=== PATIENT | female | born 1960 | race Caucasian/White ===

== ENCOUNTER 2017-01-16 15:55 | Inpatient (IN) | payer OTHER ==
[~2017-01-16] VITALS: Ht 160 cm; Wt 92.2 kg
[~2017-01-16 15:55] MED LIST: AMLO2.5T PO; GEMF600T3 PO
[2017-01-16] MEDS ORDERED: DEXAMETHASONE SOD PHOSPHATE 4 MG INJ IV ONE (16:15)
[2017-01-16] MEDS ORDERED: diphenhydrAMINE 50 MG/1 ML VIAL IV ONE (16:15)
[2017-01-16] MEDS ORDERED: IV NS 1000 ML 1,000 ML IV ONE (16:15)
[2017-01-16] MEDS ORDERED: NITR0.4T48 SL (16:20)
[2017-01-16] MEDS ORDERED: ATOR80TA PO (16:20)
[2017-01-16] MEDS ORDERED: LISI-607 PO (16:20)
[2017-01-16] MEDS ORDERED: CLOP75TA15 PO (16:20)
[2017-01-16] MEDS ORDERED: ASPI81TA31 PO (16:20)
[2017-01-16] MEDS ORDERED: FENO134C PO (16:20)
[2017-01-16] MEDS ORDERED: METO-302 PO (16:20)
--- NOTE | 2017-01-16 16:27 | NUR ---
IV PLACED, LABS DRAWN/SENT/MEDS ADMINISTERED,PT ON 4L O2 VIA [facility].MONITOR SHOWS NSR
[2017-01-16] MEDS ORDERED: DEXAMETHASONE SOD PHOSPHATE 10 MG INJ ONE (16:28)
[2017-01-16] MEDS ORDERED: diphenhydrAMINE 50 MG/1 ML VIAL ONE (16:28)
[2017-01-16] MEDS ORDERED: hydrALAZINE HCL 20 MG/1 ML VIAL IV ONE (16:30)
[2017-01-16] MEDS ORDERED: LABETALOL HCL 100 MG/20 ML VIAL IV ONE (16:36)
[2017-01-16] MEDS ORDERED: hydrALAZINE HCL 20 MG/1 ML VIAL ONE (16:37)
[2017-01-16 16:54] LABS: EOSINOPHILS # (AUTO) 0.1 K/uL (0.0-0.7); EOSINOPHILS % (AUTO) 0.5 % (0.0-7.0); HEMATOCRIT 50.3 % (37-47); HEMOGLOBIN 17.2 G/DL (12.0-16.0); LYMPHOCYTES # (AUTO) 2.3 K/UL (0.8-4.8); LYMPHOCYTES % (AUTO) 15.7 % (20.5-51.5); MEAN CORPUSCULAR HGB CONC 34 g/dL (32.0-37.0); MEAN CORPUSCULAR VOLUME 90.9 FL (81.0-99.0); MONOCYTES # (AUTO) 0.5 K/UL (0.1-1.30); MONOCYTES % (AUTO) 3.3 % (0.0-11.0); NEUTROPHILS # (AUTO) 11.8 K/UL (1.8-8.9); NEUTROPHILS % (AUTO) 80.5 % (38.5-71.5); PLATELET COUNT (AUTO) 223 K/UL (150-450); RED BLOOD CELL COUNT(AUTO) 5.53 MIL/UL (4.2-5.4); WHITE BLOOD COUNT (AUTO) 14.7 K/UL (4.0-11.2)
[2017-01-16 16:57] LABS: CREATININE 0.7 mg/dL (0.6-1.3); POTASSIUM 4.1 mmol/L (3.5-5.1)
--- NOTE | 2017-01-16 17:03 | NUR ---
PHARMACY NOTE;LABETOLOL IV NOT ADMIN,BP LOW ENOUGH, DR LÓPEZ GAVE VERBAL ORDER TO CANCEL ADMIN.
[2017-01-16 17:04] LABS: BILIRUBIN,TOTAL 0.4 mg/dL (0.2-1.0)
--- NOTE | 2017-01-16 17:13 | NUR ---
ALL MEDS ADMINISTERED 500ML 0.9NS LEFT IN 1L BAG. SBAR REPORT TO VADIM FLORES. MRSA NARES ORDERED/SENT.
--- NOTE | 2017-01-16 17:19 | NUR ---
PT TRANSFERED TO CCU#1 VIA [facility]/MONITOR/O2, BELONGINGS LIST/ADMIT ORDER/SKIN ASSESSMENT COMPLETED.
[2017-01-16 17:46] VITALS: BP 120/76
--- NOTE | 2017-01-16 18:00 | NUR ---
ADMIT A 56YO FEMALE FROM ER VIA [facility] WITH C/O SEVERE ANGIO EDEMA FROM ALLERGIC REACTION. LIPS IS SEVERLEY SWOLLEN AND BOTH CHEEKS. PT CANT TALK VERY WELL. APPLIED ICE PACK ON BOTH CHEEKS TO RELIEVE THE SWELLING. VSS.
[2017-01-16] MEDS ORDERED: MORPHINE SULFATE 2 MG/1 ML DISP.SYRIN IV PRN (18:15)
[2017-01-16] MEDS ORDERED: ACETAMINOPHEN 650 MG SUPP.RECT RC PRN (18:15)
[2017-01-16] MEDS ORDERED: ALBUTEROL SULFATE 2.5 MG/3 ML NEBU NEB PRN (18:15)
[2017-01-16] MEDS ORDERED: CLONIDINE-TTS 1 PATCH TD SCH (18:15)
[2017-01-16] MEDS ORDERED: diphenhydrAMINE 50 MG/1 ML VIAL IV PRN (18:15)
--- NOTE | 2017-01-16 18:30 | NUR ---
PT C/O CHEST PAIN LEVEL 4 AROUND LEFT SIDE OF HER LOWER BREAST. NO C/O SOB NOTED. NOTIFIED DR JONES WITH ADMISSION AND C/O CHEST PAIN. PT REFUSED TO TAKE MORPHINE IV ORDERED. APPLIED ICE PACK ON HER CHEEKS TO RELIVE SWELLING. AFEBRILE.
[2017-01-16 19:00] VITALS: BP 160/83
[2017-01-16 20:00] VITALS: BP 176/86
[2017-01-16] MEDS: methylPREDNISolone SOD SUCC 40 MG/ML VIAL IV SCH (20:36)
[2017-01-16] MEDS: hydrALAZINE HCL 20 MG/1 ML VIAL IV PRN (20:36)
[2017-01-16] MEDS: FAMOTIDINE. 20 MG/2 ML VIAL IV SCH ×2 (20:37→20:47)
--- NOTE | 2017-01-16 20:47 | NUR ---
High BP, PRN medication given. Patient refused 2100 Pepcid. Teaching provided of risks/benefits. Continued to refused
[2017-01-16 21:00] VITALS: BP 110/59
[2017-01-16] MEDS: MORPHINE SULFATE 4 MG/1 ML DISP.SYRIN IV PRN (21:14)
[2017-01-16] MEDS: ONDANSETRON 4 MG/2 ML VIAL IV PRN (21:16)
--- NOTE | 2017-01-16 21:25 | NUR ---
Patient complaining of chest pain 6/10 radiating to left shoulder. Placed patient on 2L O2. EKG done stat, NSR. Notified Dr. Paul.
[2017-01-16 22:00] VITALS: BP 129/74
[2017-01-16 23:00] VITALS: BP 107/62
[2017-01-16] MEDS ORDERED: NITROGLYCERIN 0.3 MG/TAB BOTTLE SL PRN (23:15)
[2017-01-16] MEDS: ENOXAPARIN SODIUM 100 MG/ML DISP.SYRIN SQ SCH (23:51)
[2017-01-16] MEDS ORDERED: ENOXAPARIN SODIUM 60 MG/0.6 ML DISP.SYRIN SQ ONE (23:58)
[2017-01-16] MEDS ORDERED: ENOXAPARIN SODIUM 30 MG/0.3 ML DISP.SYRIN ONE (23:58)
[2017-01-17] VITALS (24 sets, daily range): BP systolic 101–159; BP diastolic 36–84
--- NOTE | 2017-01-17 | NUR ---
Chest pain managed with PRN medication as ordered. Patient denies chest pain at this time.
--- NOTE | 2017-01-17 00:08 | NUR ---
90 mg Lovenox unavailable in pyxis. Administered 60 mg + 30 mg Lovenox SQ for total of 90 mg Lovenox as ordered. Verified and witnessed with Kelli Gomez RN
[2017-01-17] MEDS: IV D5 1/2 NS 1000 ML 1,000 ML IV PRN ×2 (01:38→14:35)
[2017-01-17 05:44] LABS: BASOPHILS % (AUTO) 0.2 % (0.0-2.0); HEMATOCRIT 44.7 % (37-47); HEMOGLOBIN 15.6 G/DL (12.0-16.0); LYMPHOCYTES # (AUTO) 1.4 K/UL (0.8-4.8); LYMPHOCYTES % (AUTO) 11.9 % (20.5-51.5); MEAN CORPUSCULAR HEMOGLOBIN 31.5 UUG (27.0-31.0); MEAN CORPUSCULAR HGB CONC 35 g/dL (32.0-37.0); MEAN CORPUSCULAR VOLUME 90.2 FL (81.0-99.0); MONOCYTES # (AUTO) 0.1 K/UL (0.1-1.30); MONOCYTES % (AUTO) 0.5 % (0.0-11.0); NEUTROPHILS # (AUTO) 10.1 K/UL (1.8-8.9); NEUTROPHILS % (AUTO) 87.4 % (38.5-71.5); PLATELET COUNT (AUTO) 212 K/UL (150-450); RED BLOOD CELL COUNT(AUTO) 4.95 MIL/UL (4.2-5.4); WHITE BLOOD COUNT (AUTO) 11.6 K/UL (4.0-11.2)
[2017-01-17 05:49] LABS: BILIRUBIN,TOTAL 0.5 mg/dL (0.2-1.0); CREATININE 0.8 mg/dL (0.6-1.3); MAGNESIUM 1.7 mg/dL (1.8-2.4); POTASSIUM 4.1 mmol/L (3.5-5.1); TOTAL PROTEIN, SERUM 6.9 g/dL (6.4-8.2)
[2017-01-17 05:53] LABS: THYROID STIMULATING HORMONE 0.381 mIU/mL (0.358-3.740)
--- NOTE | 2017-01-17 06:25 | NUR ---
Critical lab for elevated troponin. Notified Dr. Moreira. Pending cardiology consult
--- NOTE | 2017-01-17 07:35 | NUR ---
No more complaints of chest pain. Patient states she is comfortable since admin of PRN morphine. BP elevated in beginning of shift, managed with PRN medication. PRN 2L O2 to keep SpO2 WNL, as ordered, now on room air. NPO status maintained. SBAR report given to Melia Hurtado RN.
--- NOTE | 2017-01-17 08:00 | NUR ---
Pt received this am awake and alert with fall precautions and safety measures maintained. classroom monitor and alarms working properly wnl. IVF infusing as ordered. Pt stable and nad noted.
[2017-01-17] MEDS: AMLODIPINE 5 MG TABLET PO SCH ×2 (08:02→08:21)
[2017-01-17] MEDS: ASPIRIN 81 MG TAB.CHEW PO SCH ×3 (08:02→11:50)
[2017-01-17] MEDS: CLOPIDOGREL 75 MG TABLET PO SCH ×3 (08:02→11:50)
[2017-01-17] MEDS: methylPREDNISolone SOD SUCC 40 MG/ML VIAL IV SCH ×2 (08:03→21:30)
[2017-01-17] MEDS: FAMOTIDINE. 20 MG/2 ML VIAL IV SCH ×2 (08:03→21:00)
[2017-01-17] MEDS: METOPROLOL SUCCINATE XL 25 MG TAB.SR.24H PO SCH ×2 (08:04→08:21)
[2017-01-17] MEDS: ENOXAPARIN SODIUM 100 MG/ML DISP.SYRIN SQ SCH ×2 (08:38→21:37)
[2017-01-17] MEDS ORDERED: AMLODIPINE 2.5 MG TABLET PO SCH (09:00)
--- NOTE | 2017-01-17 11:40 | NUR ---
Dr. To here to see pt. Full report given. New orders received and carried out.
[2017-01-17] MEDS ORDERED: LORAZEPAM 2 MG/1 ML VIAL IV ONE (11:45)
--- NOTE | 2017-01-17 11:51 | NUR ---
US tech here to see pt for 2D Echocardiogram.
[2017-01-17] MEDS: hydrALAZINE HCL 20 MG/1 ML VIAL IV PRN (14:46)
[2017-01-17] MEDS: MORPHINE SULFATE 4 MG/1 ML DISP.SYRIN IV PRN (15:24)
[2017-01-17] MEDS: ONDANSETRON 4 MG/2 ML VIAL IV PRN (15:24)
[2017-01-17] MEDS: MAGNESIUM SULFATE/D5W 100 ML IV SCH ×2 (15:51→16:40)
--- NOTE | 2017-01-17 18:51 | NUR ---
End of shift: Pt sitting up at the edge of the bed awake and alert with fall precautions and safety measures maintained. spring winder and alarms working properly wnl. IVF infusing as ordered. Pt stable and nad noted.
--- NOTE | 2017-01-17 19:30 | NUR ---
patient received on room air ,no respiratory distress noted breathing even and unlabored on room air .saturation 94% and rr 22. Addendum: 01/17/17 at 2209 by DARWIN DICKENS RN Amended: Links added. Addendum: 01/17/17 at 2210 by DARWIN DICKENS RN Amended: Links added.
--- NOTE | 2017-01-17 20:30 | NUR ---
patient in bed awake , no pain verbalized and no sob noted breathing even and unlabored on room air . facial edema and lip edema still noted but as per patient the swelling/edema is much better and less .advised patient to call for any breathing problem and pain .
[2017-01-17] MEDS: ATORVASTATIN 40 MG TABLET PO SCH (21:00)
--- NOTE | 2017-01-17 21:00 | NUR ---
patient refused Lipitor and Pepcid ,educated with risk and benefits .still refused medication documented in EMAR.
--- NOTE | 2017-01-17 21:00 | NUR ---
patient is very knowledgeable with regards to her condition and plan of treatment . verbalized she is for possible transfer to another hospital for heart test and procedure Addendum: 01/18/17 at 0123 by DARWIN DICKENS RN Amended: Links added.
--- NOTE | 2017-01-17 22:00 | NUR ---
advised patient to call for assistance and to used the call mock.informed patient she had Ativan medication for anxiety and to call if needs it . Addendum: 01/18/17 at 0120 by DARWIN DICKENS RN Amended: Links added. Addendum: 01/18/17 at 0123 by DARWIN DICKENS RN Amended: Links added.
[2017-01-18] VITALS (20 sets, daily range): BP systolic 102–166; BP diastolic 53–94
[2017-01-18] MEDS: IV D5 1/2 NS 1000 ML 1,000 ML IV PRN (03:01)
[2017-01-18 06:50] LABS: CREATININE 0.7 mg/dL (0.6-1.3); MAGNESIUM 2.2 mg/dL (1.8-2.4); POTASSIUM 4.2 mmol/L (3.5-5.1)
[2017-01-18] MEDS: METOPROLOL SUCCINATE XL 25 MG TAB.SR.24H PO SCH (07:44)
[2017-01-18] MEDS: AMLODIPINE 5 MG TABLET PO SCH (07:45)
[2017-01-18] MEDS: FAMOTIDINE. 20 MG/2 ML VIAL IV SCH ×2 (08:00→20:32)
[2017-01-18] MEDS: ASPIRIN 81 MG TAB.CHEW PO SCH (08:00)
[2017-01-18] MEDS: methylPREDNISolone SOD SUCC 40 MG/ML VIAL IV SCH ×2 (08:00→20:29)
[2017-01-18] MEDS: CLOPIDOGREL 75 MG TABLET PO SCH (08:00)
[2017-01-18] MEDS: ENOXAPARIN SODIUM 100 MG/ML DISP.SYRIN SQ SCH ×2 (08:07→20:30)
[2017-01-18] MEDS ORDERED: Nitroglycerin Sl SL (14:05)
[2017-01-18] MEDS ORDERED: ATOR40TA PO (14:05)
[2017-01-18] MEDS ORDERED: FAMO-132 PO (14:05)
[2017-01-18] MEDS ORDERED: ENOX100D SQ (14:05)
[2017-01-18] MEDS: hydrALAZINE HCL 20 MG/1 ML VIAL IV PRN ×2 (16:14→22:33)
--- NOTE | 2017-01-18 17:08 | NUR ---
Full telephone SBAR report given to SANDRA Llanos at [facility]: . Ambulance to arrive here in the unit around 1999.
[2017-01-18] MEDS: LORAZEPAM 2 MG/1 ML VIAL IV PRN ×2 (17:13→23:00)
--- NOTE | 2017-01-18 18:48 | NUR ---
End of shift: Pt resting in bed awake and alert with fall precautions and safety measures maintained. security chief museum and alarms working properly wnl. IVF infusing as ordered. Pt stable and nad noted. Endorsed to sales advisor RN to discharge pt to [facility] with ambulance.
--- NOTE | 2017-01-18 20:00 | NUR ---
RECEIVED PT. AWAKE, ALERT & ORIENTED X3, DENIES CHEST PAIN. PT. WAITING FOR AMBULANCE FOR TRANSFER TO ACUTE HOSPITAL. FACE IS LESS SWOLLEN. HEP LOCK INTACT ON LFA & PATENT. BP STABLE, AFEBRILE. NOT IN ANY DISTRESS.
[2017-01-18] MEDS: ATORVASTATIN 40 MG TABLET PO SCH (20:29)
--- NOTE | 2017-01-18 21:27 | NUR ---
CALLED AMBULANCE TO CHECK THE STATUS OF TRANSFER, SUPPOSED TO BE @ 1999, STATED THEY GONNA BE LATE.
--- NOTE | 2017-01-18 22:33 | NUR ---
HYDRALAZINE 10MG IVP GIVEN FOR BP-160/94.
--- NOTE | 2017-01-18 23:00 | NUR ---
PT. REQUESTED MED FOR ANXIETY, ATIVAN 0.5NG GIVEN IVP ORDERED. BP-141/63.
[2017-01-18] MEDS ORDERED: ACETAMINOPHEN 325 MG TABLET PO PRN (23:30)
[2017-01-18] MEDS ORDERED: ACETAMINOPHEN 325 MG TABLET ONE (23:36)
[2017-01-19] VITALS: BP 98/62
[2017-01-19 00:50] VITALS: BP 124/57
--- NOTE | 2017-01-19 00:55 | NUR ---
TRANSFERED TO [facility]IA [facility]. REPORT GIVEN TO RN.
== END 2017-01-19 00:14 | disposition short-term general hospital (02) | DRG 811 ==
LOC: ER 15:57 → CCU 17:11
PROVIDERS: ADMIT Internal Medicine; ATTEND Internal Medicine
DX: T78.2XXA Anaphylactic shock, unspecified, initial encounter (principal); I21.4 Non-ST elevation (NSTEMI) myocardial infarction; I50.31 Acute diastolic (congestive) heart failure; T78.3XXA Angioneurotic edema, initial encounter; E66.9 Obesity, unspecified; E78.5 Hyperlipidemia, unspecified; I25.10 Atherosclerotic heart disease of native coronary artery without angina pectoris; R13.10 Dysphagia, unspecified; Z87.891 Personal history of nicotine dependence; Z98.61 Coronary angioplasty status; Z68.36 Body mass index [BMI] 36.0-36.9, adult; Y84.8 Other medical procedures as the cause of abnormal reaction of the patient, or of later complication, without mention of misadventure at the time of the procedure; Y92.89 Other specified places as the place of occurrence of the external cause; T49.8X5A Adverse effect of other topical agents, initial encounter; D72.828 Other elevated white blood cell count; R94.31 Abnormal electrocardiogram [ECG] [EKG]; I11.0 Hypertensive heart disease with heart failure; T80.89XA Other complications following infusion, transfusion and therapeutic injection, initial encounter
CPT/HCPCS: 36415; 70030-TC; 71010; 83550; 83735; 84100; 84443; 85025; 85610; 93005; 93307; 94640; A4663; J0360; J1100; J1200; J1650; J2060; J2270; J2405; J2920; J3475; J3490; J7030

== ENCOUNTER 2018-02-25 11:39 | Emergency (ER) | payer OTHER ==
[~2018-02-25] VITALS: Ht 160 cm; Wt 91.6 kg
[~2018-02-25 11:39] MED LIST changes: -AMLO2.5T PO; +AMLO2.5T3 PO; +ASPI81TA31 PO; +ATOR40TA PO; +CLOP75TA15 PO; +ENOX100D SQ; +FAMO-132 PO; +FENO134C PO; -GEMF600T3 PO; +METO-356 PO; +Nitroglycerin Sl SL
--- NOTE | 2018-02-25 12:15 | NUR ---
PATIENT WAS SEEN BY DR SHELTON
[2018-02-25] MEDS ORDERED: FLUORESCEIN SODIUM 1 MG STRIP ONE (12:27)
[2018-02-25] MEDS ORDERED: TETRACAINE HCL 0.5% OPHT DROP 2 ML BOTTLE ONE (12:27)
[2018-02-25] MEDS ORDERED: TETRACAINE HCL 0.5% OPHT DROP 2 ML BOTTLE OP ONE (12:30)
[2018-02-25] MEDS ORDERED: FLUORESCEIN SODIUM 1 MG STRIP OP ONE (12:30)
--- NOTE | 2018-02-25 13:07 | NUR ---
DC, Rx and follow up instructions given and explained to patient who states she understands all instructions
== END 2018-02-25 13:12 | disposition home or self-care (01) ==
LOC: ER 11:39
DX: H10.32 Unspecified acute conjunctivitis, left eye (principal); I10 Essential (primary) hypertension; F17.200 Nicotine dependence, unspecified, uncomplicated; Z88.8 Allergy status to other drugs, medicaments and biological substances; Z79.82 Long term (current) use of aspirin; Z79.01 Long term (current) use of anticoagulants; Z79.899 Other long term (current) drug therapy
CPT/HCPCS: A4663

== ENCOUNTER 2018-02-27 13:15 | Emergency (ER) | payer OTHER ==
[~2018-02-27] VITALS: Ht 157.5 cm; Wt 77.1 kg
--- NOTE | 2018-02-27 13:30 | NUR ---
Dr Pacheco at the bedside for MSE.
--- NOTE | 2018-02-27 13:49 | NUR ---
Patient discharged to home in stable conditon. Written and verbal after care instructions given. Patient verbalizes understanding of instructions.
[2018-02-27 13:50] VITALS: BP 139/69
== END 2018-02-27 13:51 | disposition home or self-care (01) ==
LOC: ER 13:15
DX: H10.9 Unspecified conjunctivitis (principal); I10 Essential (primary) hypertension; F17.200 Nicotine dependence, unspecified, uncomplicated; Z88.8 Allergy status to other drugs, medicaments and biological substances; Z79.82 Long term (current) use of aspirin; Z79.01 Long term (current) use of anticoagulants; Z79.899 Other long term (current) drug therapy
CPT/HCPCS: A4663

== ENCOUNTER 2022-05-11 13:48 | Emergency (ER) | payer MEDICAID, OTHER ==
[~2022-05-11] VITALS: Ht 160 cm; Wt 91.6 kg
[~2022-05-11 13:48] MED LIST changes: -AMLO2.5T3 PO; +AMLO2.5T4 PO
--- NOTE | 2022-05-11 15:04 | NUR ---
PT WAS EVALUATED BY DR ROMAN.
[2022-05-11 15:09] LABS: *BILIRUBIN,URIN NEGATIVE (NEGATIVE); *BLOOD, URINE 3+ (NEGATIVE); *CLARITY,URINE CLOUDY (CLEAR); *COLOR,URINE YELLOW (YELLOW); *KETONES,URINE NEGATIVE (NEGATIVE); *UROBILINOGEN,URINE 0.2 E.U./dl (NORMAL); LEUKOCYTE ESTERASE ,URINE 3+ (NEGATIVE); NITRITE, URINE NEGATIVE (NEGATIVE); UGLUCOSE NEGATIVE (NEGATIVE)
[2022-05-11] MEDS ORDERED: IBUP-1955 PO (16:23)
[2022-05-11] MEDS ORDERED: CEPH500T PO (16:23)
--- NOTE | 2022-05-11 17:43 | NUR ---
PT WAS EVALUATED BY DR ROMAN. PT WAS D/C'd TO HOME. D/C INSTRUCTIONS GIVEN TO THE PT BY DR ROMAN.
[2022-05-11 17:45] VITALS: BP 139/75
== END 2022-05-11 17:46 | disposition home or self-care (01) ==
LOC: ER 13:48
DX: N39.0 Urinary tract infection, site not specified (principal); I10 Essential (primary) hypertension; E78.5 Hyperlipidemia, unspecified; E66.9 Obesity, unspecified; Z68.35 Body mass index [BMI] 35.0-35.9, adult; Z87.892 Personal history of anaphylaxis; Z91.048 Other nonmedicinal substance allergy status
CPT/HCPCS: A4663